=== PATIENT | female | born 1935 | race Caucasian/White ===

== ENCOUNTER 2020-06-08 10:06 | Outpatient (CLI) | payer MEDICARE, BC, SELFPAY ==
--- NOTE | 2020-06-08 12:00 | NEURO_ITS ---
Impression: # Complains of gait dysfunction. Known diabetic for long duration; 3 plus edema noted bilaterally. # No responses obtained from motor or sensory nerves # Needle/EMG exam not done due to the bilateral +++ edema and patient being diabetic. # Clinical correlation recommended. Nerve Conduction Studies Anti Sensory Summary Table Stim Site NR Peak (ms) P-T Amp (?V) Site1 Site2 Delta-P (ms) Dist (cm) Travis (m/s) Left Sup Fibular Anti Sensory (Ant Lat Mall) NO RESPONSE 14 cm NR 14 cm Ant Lat Mall 16.0 Right Sup Fibular Anti Sensory (Ant Lat Mall) NO RESPONSE 14 cm NR 14 cm Ant Lat Mall 16.0 Left Sural Anti Sensory (Lat Mall) NO RESPONSE Calf NR Calf Lat Mall 16.0 Right Sural Anti Sensory (Lat Mall) NO RESPONSE Calf NR Calf Lat Mall 16.0 Motor Summary Table Stim Site NR Onset (ms) O-P Amp (mV) Site1 Site2 Delta-0 (ms) Dist (cm) Travis (m/s) Left Peroneal Motor (Vastus Med) NO RESPONSE Ankle NR Popit NR Right Peroneal Motor (Vastus Med) NO RESPONSE Ankle NR Popit NR Left Tibial Motor (Abd Head Brev) NO RESPONSE Ankle NR Knee NR Right Tibial Motor (Abd Head Brev) NO RESPONSE Ankle NR Knee NR F Wave Studies NR F-Lat (ms) L-R F-Lat (ms) Left Peroneal (Mrkrs) (EDB) NO RESPONSE NR Right Peroneal (Mrkrs) (EDB) NO RESPONSE NR Left Tibial (Mrkrs) (Abd Hallucis) NO RESPONSE NR Right Tibial (Mrkrs) (Abd Hallucis) NO RESPONSE NR MTDD
== END 2020-06-08 10:07 | disposition home or self-care (01) ==
LOC: ANHNEURO 10:07
PROVIDERS: PCP Internal Medicine
DX: G62.89 Other specified polyneuropathies (principal); R26.81 Unsteadiness on feet
CPT/HCPCS: 95910

== ENCOUNTER 2021-09-18 16:45 | Outpatient (RCR) | payer MEDICARE, BC, SELFPAY ==
--- NOTE | 2021-08-08 15:00 | PTOPEVAL ---
PHYSICAL THERAPY INITIAL EVALUATION. Thank you for referring Charley Williamson to [facility].? The patient is scheduled to be seen for therapy? 2x/week for 5 weeks. Please review, sign, date and return this plan of care LORENZO. I agree with and certify that the following plan of care is medically necessary. Referring Physician Date Attending Provider: Ortiz Fleming, MD *PT Outpatient Evaluation Start: 08/08/21 Evaluation Information Diagnosis LE weakness and gait deviations Onset ~4 years Subjective Information Pt states she has severe Query Text:As Reported By Patient/ neuropathy and has troubles Family walking. She states she started using a walking ~4 years ago. Pt declines any falls in the last 6 months. Prior Level of Function Home Type House,Multiple Levels Environmental Barriers Railing, Bilateral,Stairs, 2-4 Living Situation Alone Support Available Local Family Support,Medical Alert System,Neighbor/Friend Support Mobility Assistive Devices (Used Last 3 Walker, Wheeled Months) Pain Assessment Pain Score 0: Self Report Lower Extremity Range of Motion General Lower Extremity Range of Motion WFL/Left,WFL/Right Lower Extremity Muscle Strength Testing Gross Lower Extremity Strength B LE grossly 4+/5 through MMT Balance Assessment Tinetti Balance Assessment Tinetti Composite Score (Balance + Gait) 16 Interpretation of Scores High risk for falls(< 19) Tinetti Fall Risk high Time Up Go (TUG) Timed Up and Go Test (TUG) (Seconds) 28 Assistive Devices Walker, Wheeled 5 Time Sit to Stand Time in Seconds 24 5 Time Sit to Stand Comments with use of UEs Gait Assessment Ambulation Assistive Devices Walker, Wheeled Ambulation Ability Contact Guard Gait Pattern Shuffled Gait,Step-to Gait, Trendelenburg Gait Gait Pattern Observed Decreased Stride Length - Left ,Decreased Stride Length - Right,No Heel Strike - Left,No Heel Strike - Right Other Gait Observations decreased gait speed, step length, and stride length. Increased lateral trunk lean, flat foot contact, ER R LE > L LE. 2 Minute Walk Total Distance Walked (feet) 163 2 Minute Walk Gait Speed Score (feet/sec) 1.35 2 Minute Walk Test Comments one standing rest
--- NOTE | 2021-08-29 12:23 | PCPTNOTE ---
Patient called & cancelled scheduled appointment this date due to not having ride this date.
--- NOTE | 2021-09-05 13:56 | PCPTNOTE ---
Patient canceled appointment on 09/01/21 for this date due to not having transportation.
--- NOTE | 2021-09-08 15:38 | PCPTNOTE ---
Patient called & cancelled scheduled appointment this date, it is unclear why.
--- NOTE | 2021-09-12 13:40 | PTOPEVAL ---
PHYSICAL THERAPY PROGRESS REPORT. Thank you for referring Charley Williamson to [facility].? The patient is scheduled to be seen for therapy? 2x/week for 4 weeks. Please review, sign, date and return this plan of care LORENZO. I agree with and certify that the following plan of care is medically necessary. Referring Physician Date Attending Provider: Ortiz Fleming, MD Evaluation Information Diagnosis LE weakness and gait deviations Onset ~4 years Subjective Information Pt states she is really happy Query Text:As Reported By Patient/ with therapy so far, shes Family states she is happy to be here . She reports good compliance with her HEP and thinks she has made good progress with therapy. Pain Assessment Pain Score 0: Self Report Lower Extremity Muscle Strength Testing Gross Lower Extremity Strength B LE grossly 4+/5 through MMT Balance Assessment Tinetti Balance Assessment Tinetti Composite Score (Balance + Gait) Interpretation of Scores High risk for falls(< 19) Tinetti Fall Risk high Time Up Go (TUG) Timed Up and Go Test (TUG) (Seconds) 24 Assistive Devices Walker, Wheeled Comments Initially: 28s with WW 09/12/21: 24s with WW 5 Time Sit to Stand Time in Seconds 18 5 Time Sit to Stand Comments Initially: 24s, with use of Query Text:Normative Data: If Greater UEs Than 15 Seconds, 74% Increase Risk for 09/12/21: 18s, with use of UEs Recurrent Falls Gait Assessment Ambulation Assistive Devices Walker, Wheeled Gait Pattern Observed Decreased Stride Length - Left ,Decreased Stride Length - Right,No Heel Strike - Left,No Heel Strike - Right Other Gait Observations decreased gait speed, step length, and stride length. Increased lateral trunk lean, flat foot contact, ER R LE > L LE. 2 Minute Walk 2 Minute Walk Test Comments Initially: 163ft (1.35ft/sec) one standing rest break used at 1:30. O2 at 90% at end of test 09/12/21: 153ft (1.27ft/sec) one standing rest break of 1:20, stopped at 1:50 stating shes unable to go further Safety Assessment Factors Affecting Safety Decreased Balance,Decreased Endurance,Decreased Mobility,
--- NOTE | 2021-09-25 07:46 | PCPTNOTE ---
Patient called & cancelled scheduled appointment this date due to not having any transportation.
--- NOTE | 2021-09-27 12:15 | PCPTNOTE ---
Patient called & cancelled scheduled appointment this date due to no transportation.
--- NOTE | 2021-10-03 14:49 | PCPTNOTE ---
Called patient on scheduling re-eval appointment and talked to patient about discharging until further notice. Patient stated she is waiting for a phone call from bus service to set appointment up for transportation wants to continue. Will call as soon as she hears back from services.
--- NOTE | 2021-10-05 11:31 | PCPTNOTE ---
Patient called & cancelled scheduled appointment this date due to having to attend a . Pt has a history of not having reliable transportation but has reached out to a new [employer] company. She will call back to reschedule.
--- NOTE | 2021-10-31 10:41 | PCPTNOTE ---
Attending Provider: Ortiz FlemingMD Patient:Charley Williamson Date of :1935 PHYSICAL THERAPY DISCHARGE SUMMARY. Patient called and cancelled her re-evaluation this date due to a family emergency. Patient has not returned for any further treatments since 09/18/2021, due to family illness and subsequent transportation issues. Pt would like to come back to therapy when lift settles down, she will therefore be discharged from skilled therapy services at this time. She was told she will need a new order when the time comes. Patient?s initial visit was on 08/08/2021 13:30 and she had a total of 8 visits. The goals have been partially met. Thank you for referring this patient to [facility]. Please review, sign, date and return this discharge summary LORENZO. I have been updated about the patient's current status and I agree with discharge from the above service at this time. Referring Physician Date
== END 2021-10-31 14:21 | disposition home or self-care (01) ==
LOC: ANHPT 16:45
PROVIDERS: PCP Internal Medicine; Visit Provider Internal Medicine
DX: M62.81 Muscle weakness (generalized) (principal)
CPT/HCPCS: 97110; 97112; 97161; 97530

== ENCOUNTER 2022-02-15 11:00 | Outpatient (RCR) | payer MEDICARE, BC, SELFPAY ==
--- NOTE | 2022-01-03 09:41 | PTOPEVAL1 ---
Assessment and note entered by Johana Oreilly, PT Evaluation Information Assessment Status Evaluation Diagnosis gait abnormalities Onset past year Subjective Information no falls in the past 6 months; use the walker all of the time for walking; R leg is weaker than the L--have neuropathy in R leg and foot; want to be able to walk without the walker; have cane at home, but not use it; am doing leg exercises at home from when here- standing ones; Reported Pain Level Pain Score 0: Self Report Assessment PT Clinical Summary Lidia has the diagnosis of gait abnormality. She recently had PT here, but had to stop due to a in her family. She is using the wheeled walker for gait and wants to be able to walk without it. She has been doing some standing exercises at home. With the evaluation, she has decreased strength of R and L LE, with decreased bed mobility, transfer and gait balance--TUG is 27 sec, Tinetti balance score of 17/28 puts her at high risk for falls and 2 minute walking distance is 150'. Skilled PT services are indicated to increase LE strength, transfer, gait and balance skills, with education for home exercise program, with progression to cane gait as she is able. Plan of Care Interventions Gait Training,Neuro Re-education,Patient/Caregiver Education,Therapeutic Activities,Therapeutic Exercise PT Services Indicated Yes Treatment Frequency and 0-2x/wk for 7 weeks; pt requests treatment times Duration with her sister and times not available for the next few weeks to start the schedule she requests These treatments will address the objective and functional deficits as defined above. The patient will be advanced safely and appropriately in order for the patient to progress towards his/her prior level of function. Additional exercises will be introduced and as well as a comprehensive home exercise program upon discharge, if needed, ?to ensure carryover of functional gains achieved in the clinic. This treatment plan has been reviewed and agreement upon by the patient.
--- NOTE | 2022-02-15 11:50 | PTOPDC ---
Assessment and note entered by Johana Oreilly, PT Evaluation Information Assessment Status Discharge Diagnosis gait abnormalities Onset past year Subjective Information Lidia reports: walking is better, legs are stronger; not really like walking with the cane, was scary and not really sure about it, if knee gives out, the cane would not hold me; feel more comfortable and doing better on the stairs-- at home, no longer lean my shoulder on the wall from garage stairs; want to join the fitness center again and start water exercises again; Reported Pain Level Pain Score 0: Self Report Assessment PT Clinical Summary Lidia has received 9 PT sessions. Compared to the initial evaluation, she has improved in all areas: R and L LE strength; ability to transfer supine/sit and sit/stand; 2 minute walking test distance increased 50'; TUG time improved by 5 seconds; Tinetti balance score by 3 points; she is comfortable on stairs with B handrails; She wanted to try the cane, but did not feel safe with it and is OK with staying on the walker. Education has been completed for HEP to continue LE strength and balance exercises. The goals were partially achieved. Discharge PT services. Plan of Care PT Services Indicated No
== END 2022-02-15 13:51 | disposition home or self-care (01) ==
LOC: ANHPT 11:00
PROVIDERS: PCP Internal Medicine; Visit Provider Internal Medicine
DX: R26.9 Unspecified abnormalities of gait and mobility (principal)
CPT/HCPCS: 97110; 97112; 97116; 97161; 97530